=== PATIENT | female | born 2000 | race Caucasian/White ===

== ENCOUNTER 2018-01-13 11:22 | Inpatient (IN) ==
[2018-01-13 12:25] LABS: Bilirubin,Urine Negative (Negative); Blood,Urine Negative (Negative); Clarity,Urine Cloudy (Clear); Color,Urine Yellow (Yellow); Glucose,Urine (UA) Normal (Normal); Ketones,Urine Negative (Negative); Leukocyte Esterase,Urine Moderate (Negative); Nitrite,Urine Negative (Negative); Protein,Urine Negative (Neg-Trace); Specific Gravity,Urine 1.008 (1.010-1.025); Urobilinogen,Urine Normal (Normal)
[2018-01-13 12:28] LABS: Hyaline Casts,Urine None Seen per lpf (None-Few); RBC,Urine 0-3 per hpf (0-3); Squamous Epithelial Cell,Urine Many per lpf (None-Few)
[2018-01-13 12:37] LABS: Amphetamine Screen,Urine Negative ng/mL (Cutoff=1000); Barbiturate Screen,Urine Negative ng/mL (Cutoff=200); Benzodiazepines Screen,Urine Negative ng/mL (Cutoff=200); Cannabinoid Screen,Urine Negative ng/mL (Cutoff = 50); Cocaine Screen,Urine Negative ng/mL (Cutoff= 300); Opiate Screen,Urine Negative ng/mL (Cutoff=300); Phencyclidine Screen,Urine Negative ng/mL (Cutoff=25)
[2018-01-13 12:42] LABS: Bacteria,Urine Many per hpf (None-Few)
[2018-01-13] MEDS ORDERED: Metoclopramide 10 MG/2 ML VIAL IVP PRN (13:56)
[2018-01-13] MEDS ORDERED: *HR* Nalbuphine 10 MG/ML AMPUL IVP PRN (13:56)
[2018-01-13] MEDS ORDERED: Ondansetron 4 MG/2 ML VIAL IVP PRN (13:56)
[2018-01-13] MEDS ORDERED: Famotidine 20 MG/2 ML VIAL IVP PRN (13:56)
[2018-01-13] MEDS ORDERED: Naloxone 0.4 MG/ML INJ IVP PRN (13:56)
--- NOTE | 2018-01-13 13:56 | OB/GYN History & Physical ---
Date of Encounter: 01/13/18 Time of Encounter: 13:53 Assessment and Plan (1) 39 weeks gestation of Current visit: Yes Status: Acute Admit for labor Epidural if and when patient desires CBC and blood glucose AROM when appropriate Anticipate Plan of care discussed with Dr. Holm (2) Non-stress test reactive Current visit: Yes Status: Acute FHR 145 bpm, moderate variability, +15 x 15 accelerations, 1 variable deceleration noted. (3) Gestational diabetes mellitus (GDM) affecting first Current visit: Yes Status: Acute Patient was unable to tolerate her 3 hour glucose test. Was inconsistent with blood sugar monitoring at home. Ponrt-la-hqgo glucose was 89. Will draw serum blood glucose with CBC. We will monitor for signs and symptoms of hypoglycemia throughout labor. History of Present Illness Chief complaint: Labor HPI: Ms. Tobar is a 17 year old female G1 at 39 weeks 3 days who comes in complaining of contractions today every 5-10 minutes. She reports positive movement denies leakage of fluid and bleeding. This is complicated by gestational diabetes. Dr. Uriostegui had started her on metformin twice daily but she reports she has not taken this medication for 3 weeks because it upsets her stomach. She does report taking a vitamin daily. I spoke with Dr. Holm about this patient and her plan of care. She has progressed from 3 cm to 5 cm 90% -1 station in the 2 hours since she arrived. Will admit for labor at this time. Blood type B negative GBS negative HBsAg negative HIV-negative Rubella immune Varicella equivocal T Palladium negative Past Med Surg Social Fam HX - Past Medical History Source: patient Medical history: no medical history Psychiatric history: no psych history - Past Surgical History Surgical History: no surgical history - Social History Smoking Status: Never smoker Smokeless Tobacco Status: No Alcohol use: none Drug use: none Current living situation: Home - Independent, With Family Activity Level: Independent ambulation Recent Out of Country Travel Within the Last 8 Weeks: No Exposure or Possible Exposure to Illness During Travel: No - Family History Father Living Status: Still Living Hx Family Cardiac Disorders: Yes (HTN) Hx Family Respiratory Disorders: No Hx Family Cancer: No Hx Family Endocrine Disorder: Yes ("thyroid") Obstetrical History - Pregnancies : 1 Para: 0 Term: 0 : 0 Ab's: 0 Livin Medications and Allergies Multivitamin [Flintstones] 1 tab PO DAILY 01/13/18 [History] metFORMIN [Glucophage] 1 tab PO BID 01/13/18 [History] Allergy/AdvReac Type Severity Reaction Status Date / Time No Known Allergies Allergy Verified 06/11/17 23:42 Exam - Constitutional Constitutional: well developed, well nourished, average body habitus - Neck Neck exam: full ROM - Lungs Respiratory exam: CTAB - Cardiovascular Cardiovascular exam: RRR, +S1, +S2 - Breasts Breast: bilateral: normal - Abdomen Abdomen: Present: bowel sounds normal - Extremities Extremities exam: full ROM, normal capillary refill, normal inspection Deep Tendon Reflex Grade: 2+ Normal - Vulva Vulva: bilateral: normal - Vagina Vagina: Present: normal moisture - Cervix Dilation: 5 Effacement: 90 Station: -1 - Uterus Uterus exam: Present: normal size - Anus/Rectum Anus/Rectum: Present: normal perianal skin Results Abnormal lab results Urine Clarity Cloudy (Clear) A 01/13/18 12:17 Ur Specific [place] 1.008 (1.010-1.025) L 01/13/18 12:17 Ur Leukocyte Esterase Moderate (Negative) H 01/13/18 12:17 Urine Microscopic WBC 5-15 per hpf (0-3) H 01/13/18 12:17 Ur Squamous Epith Cells Many per lpf (None-Few) H 01/13/18 12:17 Urine Bacteria Many per hpf (None-Few) H 01/13/18 12:17 Ur Culture Indicated? NO. (NO) A 01/13/18 12:17 All other labs normal. - VTE Reasons for not Prescribing Prophylaxis: Treatment not Indicated - Low risk for VTE
[2018-01-13] MEDS ORDERED: Ringers Solution, Lactated 1,000 ML IVC SCH (14:00)
--- NOTE | 2018-01-13 14:05 | Anesthesia Evaluation PreOp ---
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: Denies Any Significant HX Other Medical History: Other (gestational DM) Anesthesia History: No Prior Anesthetic Complications, Past Anesthesia (no f amily hx.) Alcohol Use: none Drug use: none Medications and Allergies Multivitamin [Flintstones] 1 tab PO DAILY 01/13/18 [History] metFORMIN [Glucophage] 1 tab PO BID 01/13/18 [History] Allergy/AdvReac Type Severity Reaction Status Date / Time No Known Allergies Allergy Verified 06/11/17 23:42 Anesthesia Exam - HEENT Pupil (Motor): Pupils equal Mallampati: II Teeth: Normal Oral Opening: Greater than 3 - MIXER CRANE OPERATOR LOC: Oriented MIXER CRANE OPERATOR Motor: Normal RUE, Normal LUE, Normal RLE, Normal LLE, Normal Face MIXER CRANE OPERATOR Sensory: Normal: RUE, LUE, RLE, LLE, Face - Cardiac Rhythm: Regular Murmur: None - Pulmonary Breath Sounds: bilateral Clear Respiratory Effort: Symmetrical Anesthesia Assess/Plan ASA Score: 2 Modified Elsa Scale for Level of Consciousness: Cooperative, oriented, and tranquil Anesthetic Plan: General, Regional Monitoring Plan: Standard Monitors Recovery Plan: PACU
[2018-01-13] MEDS ORDERED: EPHEDrine 50 MG/ML VIAL IVP PRN (14:22)
[2018-01-13 14:25] LABS: Basophils % 0.3 %; Eosinophils # 0.1 K/mcL (0.0-0.6); Eosinophils % 0.5 %; Hematocrit 37.4 % (35.3-44.9); Hemoglobin 13.1 g/dL (11.5-15.4); Immature Granulocytes % 0.6 % (0-4); Lymphocytes # 1.1 K/mcL (0.6-4.6); Lymphocytes % 8.5 %; Mean Corpuscular Hemoglobin 29.7 pg (28.0-33.3); Mean Corpuscular Volume 84.8 fL (83.0-100.0); Mean Platelet Volume 10.3 fL (9.4-12.4); Monocytes # 0.7 K/mcL (0.0-1.3); Monocytes % 5.6 %; Platelet Count 186 K/mcL (140-400); Red Blood Count 4.41 M/mcL (3.82-4.97); Red Cell Distribution Width 13.5 % (11.5-14.5); Segmented Neutrophils % 84.5 %
[2018-01-13] MEDS ORDERED: Epidural Premix (fent/bupiv) 110 ML EP SCH (14:30)
[2018-01-13] MEDS ORDERED: Lidocaine -MPF 2% 5 ML VIAL ONE (14:38)
[2018-01-13] MEDS ORDERED: Acetaminophen 325 MG TABLET PO PRN (16:16)
--- NOTE | 2018-01-13 17:05 | OB Labor Progress Note ---
Date of Encounter: 01/13/18 Time of Encounter: 17:02 Labor Progress Note - Subjective Subjective: Patient coping well with contractions. Support persons at bedside. Patient is not requesting an epidural at this time. - Vital Signs Vital Signs: Afebrile - Cervix Cervix: 6/90/-1 - Heart Tones Heart Tones: FHR 130 bpm, moderate variability, +15 x 15 accelerations, no decelerations. - Wyndham Wyndham: Irregular contractions noted. Difficult to determine with toco. - Interventions Interventions: AROM for small amount of clear fluid IUPC inserted for accurate contraction monitoring. SVE - Plan Plan: Continue expectant management. Patient may have epidural if and when she desires. Consider augmentation contractions are in adequate
--- NOTE | 2018-01-13 18:09 | Anesthesia Procedures ---
Addendum entered and electronically signed by Everardo Alonso CRNA 01/14/18 07:20: Delivery Date: 01/13/18 Infant Delivery Time: 20:09 Original Note: Date of Encounter: 01/13/18 Time of Encounter: 17:47 Procedures: Anesthesia - Epidural/Spinal Patient ID/Chart reviewed: Yes Patient examined: Yes OB Eval: Gestational age: term OB Eval: : 1 OB Eval: Hx Para: 0 OB Eval: Contractions: Non-stressed pattern Supplemental Oxygen: None/Room Air Site Prep: Aseptic Technique, Sterile prep and drape, 0.5% Chlorhexidine/Alcohol Patient position: right lateral decubitus (patient unable to tolerate sitting.) Local Anesthetic: Lidocaine 1% Amount of Local Anesthetic used: 2 Touhy Needle Gauge: 18 Touhy Needle Depth (cm): 7 Catheter Depth at Skin (cm): 11 Test Dose (1.5% Lido + Epi): Volume given (mls): 3 Test Dose Result: Negative Loading Dose: Other: 8ml from solution Loading Dose Administered: Thru Catheter Infusion Med: 0.125% Bupivacaine w/ 2 mcg/ml Fentanyl Infusion Rate (mls/hr): [address]: Tegaderm, Tape Interspace Used: L3-L4 Loss of Resistance (GUILLE): Yes (saline) Blood: No CSF: No Paresthesia: No Procedure: vss though out procedure, FHR via rn's, blood with first pass, moved skin and up a level and GUILLE as above.
[2018-01-13] MEDS ORDERED: Oxytocin 20 units/ LR 1000 mL 20 UNIT/1,000 ML BAG IVC ONE (18:43)
--- NOTE | 2018-01-13 19:11 | OB Labor Progress Note ---
Date of Encounter: 01/13/18 Time of Encounter: 19:08 Labor Progress Note - Subjective Subjective: Patient completely comfortable after epidural placement. Denies any pain at this time. - Vital Signs Vital Signs: Afebrile. Several elevated blood pressures prior to epidural placement due to pain. Blood pressures are now normalized - Cervix Cervix: 9/100/+1 - Heart Tones Heart Tones: FHR 125 bpm, moderate variability, +15 x 15 accelerations, occasional early deceleration. - Bartolo Bartolo: Every 2-3 minutes. - Interventions Interventions: Sterile vaginal exam. IUPC removed due to irregular readings. Bartolo replaced. - Plan Plan: Continue expectant management Reposition patient with peanut ball Recheck cervix when patient feels rectal pressure or in approximately 1 hour. Anticipate
--- NOTE | 2018-01-13 21:02 | OB/GYN Procedure Note ---
Delivery - Delivery Date: 01/13/18 Provider: Cathryn Holm (jamal street cnm) Intrapartum events: none Delivery augmentation: rupture of membranes Delivery monitor: external FHT, external uterine Anesthesia: epidural Quantitated Blood Loss: 100 - Infant (s) Infant A Infant Delivery Date: 01/13/18 Infant Delivery Time: 20:09 Presentation: vertex Position: RAVINDER Route of delivery: Gender: Male Viability: Viable Pounds: 7 Ounces: 0 Weight Gram: 3.185 kg at 1 minute: 8 at 5 mins: 10 Shoulder Dystocia: not encountered Specimens collected: cord blood Placenta: spontaneous Cord: nuchal cord, 3 umbilical vessels, delivered through nuchal - Repair Episiotomy: none Laceration Description: Perineal - 2nd Degree, Labial (right) - Complications Delivery complications: none Delivery comments: The patient was complete and pushing with epidural anesthesia and I personally assisted and directed Mariza Street CNM, with the spontaneous vaginal delivery in the RAVINDER position of a vigorous male weighing 7 pounds with Apgars of 8 at 1 minute and 10 at 5 minutes. There was a loose nuchal that the was delivered through. Cord was clamped and cut after pulsations ceased and the infant was handed to the nursery care team. Cord blood was obtained. Placenta was delivered spontaneous and intact. Right labial laceration was hemostatic and reapproximated with 3-0 Monocryl in a single [id number] suture. A second-degree perineal laceration was repaired with 3-0 Monocryl in usual fashion after placing 2 deeper [id number] sutures for perineal support. No other lacerations noted. Estimated blood loss 100 mL's. Complications none. Both mother and were recovering in stable condition in the LDR. - Disposition Mom disposition: stable in LDR [place] disposition: stable in LDR
[2018-01-13] MEDS ORDERED: Oxytocin 20 units/ LR 1000 mL 20 UNIT/1,000 ML BAG IVC SCH (22:11)
[2018-01-13] MEDS ORDERED: *HR* HYDROcodone/Acet 5/325 mg TABLET PO PRN (22:11)
[2018-01-14] MEDS: Ibuprofen 600 MG TABLET PO PRN ×3 (00:52→20:32)
[2018-01-14] MEDS ORDERED: *HR* Metformin 500 MG TABLET PO SCH (08:00)
--- NOTE | 2018-01-14 09:16 | OB/GYN Progress Note ---
Date of Encounter: 01/14/18 Time of Encounter: 09:12 - Assessment and Plan (1) 39 weeks gestation of Current Visit: Yes Status: Acute at 39+3 GA Delivered healthy male, 7lb 0oz with 8/10 Maternal blood type B-, baby blood type AB+, will need rhogam Meeting day 1 milestones Pain well controlled Anticipate discharge tomorrow (2) Gestational diabetes mellitus (GDM) affecting first Current Visit: Yes Status: Acute Glucose WNL (3) Breast feeding status of mother Current Visit: Yes Status: Acute Currently formula feeding but intends to breastfeed support as needed Subjective - Subjective Principal diagnosis: Vaginal delivery Interval history: S/P vaginal delivery day 1 at 39+1 GA Pain is well controlled Not yet ambulating, still feeling effects of epidural Appetite appropriate Voiding well No BM yet but passing flatus Currently formula feeding but would like to breastfeed. Light lochia Male doing well Patient reports: appetite normal, voiding normally, pain well controlled Temperance: doing well, bottle feeding (However, would like to breastfeed) Objective - Latest Vital Signs Latest vital signs: Vital Signs Temp Pulse Resp BP Pulse Ox 01/14/18 08:22 16 01/14/18 07:58 98.4 F 77 16 115/76 98 01/14/18 01:00 97.7 F 85 16 117/78 98 01/14/18 00:00 98.2 F 88 16 120/75 98 01/13/18 23:00 98.7 F 81 14 130/81 97 Intake and Output 01/13/18 01/14/18 01/14/18 23:59 07:59 15:59 Intake Total 300 / 300 Output Total 900 / 900 900 / 900 Balance -900 / -900 -600 / -600 Intake: Oral 300 / 300 Output: Urine 900 / 900 900 / 900 Other: Weight 74.6 kg - Exam Lungs: bilateral: normal Chest: Normal S1, Normal S2 Extremities: Present: normal Abdomen: Present: normal appearance, soft Uterus: Present: normal, firm Uterus Position: At Umbilicus - Labs Labs: Laboratory Results - last 24 hr 01/13/18 01/13/18 01/13/18 12:17 12:17 14:21 WBC RBC Hgb Hct MCV MCH MCHC RDW Plt Count MPV Immature Gran % Seg Neutrophils % Lymphocytes % Monocytes % Eosinophils % Basophils % Neutrophils # Lymphocytes # Monocytes # Eosinophils # Basophils # Glucose 82 Urine Color Yellow Urine Clarity Cloudy A Urine pH 7.0 Ur Specific [place] 1.008 L Urine Protein Negative Urine Glucose (UA) Normal Urine Ketones Negative Urine Blood Negative Urine Nitrite Negative Urine Bilirubin Negative Urine Urobilinogen Normal Ur Leukocyte Esterase Moderate H Urine Microscopic RBC 0-3 Urine Microscopic WBC 5-15 H Ur Squamous Epith Cells Many H Urine Bacteria Many H Hyaline Casts None Seen Ur Culture Indicated? NO. A Urine Opiates Screen Negative Ur Barbiturates Screen Negative Ur Phencyclidine Scrn Negative Ur Amphetamines Screen Negative U Benzodiazepines Scrn Negative Urine Cocaine Screen Negative U Marijuana (THC) Screen Negative Ur Drug Screen Interp See Below Screen Baby's Blood Type Mother's Blood Type Rhogam Indicated Rhogam Req for Mother 01/13/18 01/13/18 14:21 21:30 WBC 13.0 H RBC 4.41 Hgb 13.1 Hct 37.4 MCV 84.8 MCH 29.7 MCHC 35.0 RDW 13.5 Plt Count 186 MPV 10.3 Immature Gran % 0.6 Seg Neutrophils % 84.5 Lymphocytes % 8.5 Monocytes % 5.6 Eosinophils % 0.5 Basophils % 0.3 Neutrophils # 11.0 H Lymphocytes # 1.1 Monocytes # 0.7 Eosinophils # 0.1 Basophils # 0.0 Glucose Urine Color Urine Clarity Urine pH Ur Specific [place] Urine Protein Urine Glucose (UA) Urine Ketones Urine Blood Urine Nitrite Urine Bilirubin Urine Urobilinogen Ur Leukocyte Esterase Urine Microscopic RBC Urine Microscopic WBC Ur Squamous Epith Cells Urine Bacteria Hyaline Casts Ur Culture Indicated? Urine Opiates Screen Ur Barbiturates Screen Ur Phencyclidine Scrn Ur Amphetamines Screen U Benzodiazepines Scrn Urine Cocaine Screen U Marijuana (THC) Screen Ur Drug Screen Interp Screen NEGATIVE Baby's Blood Type AB RH POSITIVE Mother's Blood Type B RH NEGATIVE Rhogam Indicated YES Rhogam Req for Mother 1
[2018-01-14] MEDS: Prenatal Vit/FA 1 EACH TABLET PO SCH (10:23)
[2018-01-14] MEDS ORDERED: Rho Immune Globulin 1,500 UNIT SYRINGE IM ONE (10:28)
[2018-01-15 08:31] VITALS: BP 117/78
[2018-01-15] MEDS: Prenatal Vit/FA 1 EACH TABLET PO SCH (09:38)
--- NOTE | 2018-01-15 10:39 | Discharge Summary ---
Date of Encounter: 01/15/18 Time of Encounter: 10:37 - Discharge Diagnosis (1) Vaginal delivery Priority: Primary Status: Acute Comments: Pt meeting all milestones. Anticipate . (2) Breast feeding status of mother Priority: Secondary Status: Acute (3) Gestational diabetes mellitus (GDM) affecting first Priority: Secondary Status: Acute Comments: Pt will need 2 hour GTT in 6 weeks. - Discharge Medications Prescriptions: Ibuprofen [Motrin] 600 mg PO Q6HR PRN #30 tablet PRN Reason: Cramping Breast Pump [BREAST PUMP] 1 each .ROUTE AD #1 each Docusate [Colace] 100 mg PO BID #30 capsule Home Medications: Multivitamin [Flintstones] 1 tab PO DAILY 01/13/18 [History] Breast Pump [BREAST PUMP] 1 each .ROUTE AD #1 each 01/15/18 [Rx] Docusate [Colace] 100 mg PO BID #30 capsule 01/15/18 [Rx] Ibuprofen [Motrin] 600 mg PO Q6HR PRN #30 tablet 01/15/18 [Rx] Allergies/Adverse Reactions: Allergy/AdvReac Type Severity Reaction Status Date / Time No Known Allergies Allergy Verified 06/11/17 23:42 Data Procedures and tests throughout hospitalization: Laboratory Tests 01/13/18 01/13/18 01/13/18 12:17 12:17 13:39 WBC RBC Hgb Hct MCV MCH MCHC RDW Plt Count MPV Immature Gran % Seg Neutrophils % Lymphocytes % Monocytes % Eosinophils % Basophils % Neutrophils # Lymphocytes # Monocytes # Eosinophils # Basophils # Glucose POC Glucose 89 Urine Color Yellow Urine Clarity Cloudy A Urine pH 7.0 Ur Specific [place] 1.008 L Urine Protein Negative Urine Glucose (UA) Normal Urine Ketones Negative Urine Blood Negative Urine Nitrite Negative Urine Bilirubin Negative Urine Urobilinogen Normal Ur Leukocyte Esterase Moderate H Urine Microscopic RBC 0-3 Urine Microscopic WBC 5-15 H Ur Squamous Epith Cells Many H Urine Bacteria Many H Hyaline Casts None Seen Ur Culture Indicated? NO. A Urine Opiates Screen Negative Ur Barbiturates Screen Negative Ur Phencyclidine Scrn Negative Ur Amphetamines Screen Negative U Benzodiazepines Scrn Negative Urine Cocaine Screen Negative U Marijuana (THC) Screen Negative Ur Drug Screen Interp See Below Screen Baby's Blood Type Mother's Blood Type Rhogam Indicated Rhogam Req for Mother 01/13/18 01/13/1818 14:21 14:21 21:30 WBC 13.0 H RBC 4.41 Hgb 13.1 Hct 37.4 MCV 84.8 MCH 29.7 MCHC 35.0 RDW 13.5 Plt Count 186 MPV 10.3 Immature Gran % 0.6 Seg Neutrophils % 84.5 Lymphocytes % 8.5 Monocytes % 5.6 Eosinophils % 0.5 Basophils % 0.3 Neutrophils # 11.0 H Lymphocytes # 1.1 Monocytes # 0.7 Eosinophils # 0.1 Basophils # 0.0 Glucose 82 POC Glucose Urine Color Urine Clarity Urine pH Ur Specific [place] Urine Protein Urine Glucose (UA) Urine Ketones Urine Blood Urine Nitrite Urine Bilirubin Urine Urobilinogen Ur Leukocyte Esterase Urine Microscopic RBC Urine Microscopic WBC Ur Squamous Epith Cells Urine Bacteria Hyaline Casts Ur Culture Indicated? Urine Opiates Screen Ur Barbiturates Screen Ur Phencyclidine Scrn Ur Amphetamines Screen U Benzodiazepines Scrn Urine Cocaine Screen U Marijuana (THC) Screen Ur Drug Screen Interp Screen NEGATIVE Baby's Blood Type AB RH POSITIVE Mother's Blood Type B RH NEGATIVE Rhogam Indicated YES Rhogam Req for Mother 1 Labs on day of discharge: Labs from last 24 hours 01/13/18 13:39 POC Glucose 89 Date of admission: 01/13/18 11:22 Primary care physician: Graciela Camejo CNP Consults: 01/13/18 22:11 Consult to Bagel Maker [CONS] Routine Comment: Vaginal delivery, consult needed Discharging clinician: Laura Cronin Anticipated date of discharge: 01/15/18 - Patient Status Disposition: Home, Self-Care Condition: Good Functional capacity at discharge: independent ambulation Overall status at discharge: patient is progressing back to baseline - Discharge Instructions Follow Up With: Graciela Camejo CNP [Primary Care Provider] - Bj Uriostegui DO [Partnered Physician] - - Diet and Activity Activity: increase activity as tolerated Diet: regular diet Hospital Course Reason for admission: active labor Delivery: Episiotomy: none Laceration: 2nd degree Other procedures: none complications: none Discharge diagnosis: IUP at term delivered baby: male Hospital course: - Delivery Date: 01/13/18 Provider: Cathryn Holm rochelle cnm) Intrapartum events: none Delivery augmentation: rupture of membranes Delivery monitor: external FHT, external uterine Anesthesia: epidural Quantitated Blood Loss: 100 - Infant (s) A Delivery Date: 01/13/18 Delivery Time: 20:09 Presentation: vertex Position: RAVINDER Route of delivery: Gender: Male Viability: Viable Pounds: 7 Ounces: 0 Weight Gram: 3.185 kg at 1 minute: 8 at 5 mins: 10 Shoulder Dystocia: not encountered Specimens collected: cord blood Placenta: spontaneous Cord: nuchal cord, 3 umbilical vessels, delivered through nuchal - Repair Episiotomy: none Laceration Description: Perineal - 2nd Degree, Labial (right) - Complications Delivery complications: none - Disposition Mom disposition: home PPD2 [place] disposition: home with mother, breast and bottle feeding Time Attestation: Total time spent providing and/or coordinating discharge services: Time Spent: Less than 30 minutes Exam - Constitutional Vitals: Temp Pulse Resp BP Pulse Ox 98.4 F 80 16 117/78 99 01/15/18 08:29 01/15/18 08:29 01/15/18 08:29 01/15/18 08:29 01/14/18 20:00 General appearance IM: A&O X 3 - Respiratory Respiratory exam: Present: CTAB - Cardiovascular Cardiovascular exam IM: Present: RRR - GI/Abdominal GI/Abdominal exam IM: soft - External exam: normal external exam Uterine Tone: Firm Uterus Position: At Umbilicus - Extremities Exam Extremities exam IM: Present: normal inspection - Neurological Exam Neurological exam: normal gait, oriented X3 - Psychiatric Additional comments: reports good mood, declines contraception today, safe spacing discussed.
== END 2018-01-15 14:55 | disposition home or self-care (01) | DRG 768 ==
LOC: 1NENULAB → OBSVTOIN 11:22 → 1NENUOBS 22:48
PROVIDERS: ADMIT Registered Nurse; ATTEND Registered Nurse